=== PATIENT | male | born 1990 | race Two or more races ===

== ENCOUNTER 2020-07-15 21:23 | Emergency (ER) | payer SELFPAY | END 2020-07-15 22:00 | disposition left against medical advice (07) | LOC: ER 21:23 | DX: Z04.3 Encounter for examination and observation following other accident (principal); V49.9XXA Car occupant (driver) (passenger) injured in unspecified traffic accident, initial encounter; Y93.89 Activity, other specified; Y92.89 Other specified places as the place of occurrence of the external cause; Y99.8 Other external cause status ==